=== PATIENT | female | born 1980 ===

== ENCOUNTER 2018-01-01 10:56 | Emergency (ER) | payer OTHER ==
[2018-01-01 11:15] VITALS: BP 127/87; PULSE 74; RESP 18; TEMP 98.4; O2SAT 98
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
== END 2018-01-01 12:31 | disposition home or self-care (01) ==
LOC: C.ER 10:56
DX: S40.022A Contusion of left upper arm, initial encounter (principal); V89.2XXA Person injured in unspecified motor-vehicle accident, traffic, initial encounter